=== PATIENT | female | born 1960 | race Two or more races ===

== ENCOUNTER 2025-02-05 05:46 | Inpatient (IN) | payer OTHER ==
[~2025-02-05] VITALS: Ht 172.7 cm; Wt 80.3 kg
--- NOTE | 2025-02-05 06:26 | ED.PDOC ---
History of Present Illness HPI Comments This is a 64-year-old female who comes in with chief complaint of status post injury to the left foot. The patient was states that at 1:00 a.m. in the morning she was walking and fell down and struck her left foot. The patient was taken to [facility]. It was noted at that time that she had an infection with possible fracture and laceration to the left foot 3rd digit. The patient required admission and so they started to contact different facilities and eventually the emergency department's physician at [facility] accepted the patient to be transferred to our facility. Upon arrival, the patient's foot is wrapped and swollen with redness around the area. She does state that she is having some pain rated as a 5/10. Over [place] it seems that she was given morphine for the pain as well as Zosyn for possible infection. The patient was no chest pain or shortness for breath. Chief Complaint: Lower Extremity Time Seen by MD: 06:08 Reviewed Notes: Nurses Notes, Bean Sorter Notes, Medications, Allergies (No allergies to medications) Allergies: Coded Allergies: Codeine (Verified Allergy, Unknown, 02/05/25) Hydroxyzine (Verified Allergy, Unknown, 02/05/25) Home Meds Reported Medications Duloxetine HCl (Duloxetine HCl) 30 Mg Cap, 1 CAP PO DAILY 02/05/25 Gabapentin (Gabapentin) 600 Mg Tab, TAB PO 02/05/25 Cetirizine HCl (Cetirizine Hydrochloride) 10 Mg Tab, 1 TAB PO DAILY 02/05/25 Baclofen (Baclofen) 20 Mg Tab, 1 TAB PO TID 02/05/25 Information Source: Patient, Emergency Med Personnel Mode of Arrival: EMS Severity: Moderate Timing: Hours Duration: Since onset Prehospital treatment: Rollout Manager, IVF, Other (Antibiotics given at [facility]. Pain medication also given at the hospital) Location: Left foot trauma Past Medical History PAST MEDICAL HISTORY: DM, [place] Past Medical History (Other): Chronic back pain Surgical History: Appendectomy, Hysterectomy, Tonsillectomy Surgical History (Other): Previous back surgery DIRECTOR OF MEDIA History: No Pertinent DIRECTOR OF MEDIA History Family History Family History: Family hx of DM, Family hx of heart kristina Social History Smoker: Cigarettes Alcohol: Denies ETOH Use Drugs: Denies Drug Use Lives In: Home Constitutional: denies: chills, diaphoresis, fatigue, fever, malaise, sweats, weakness, others EENTM: denies: blurred vision, double vision, ear bleeding, ear discharge, ear drainage, ear pain, ear ringing, eye pain, eye redness, hearing loss, mouth pain, mouth swelling, nasal discharge, nose bleeding, nose congestion, nose pain, photophobia, tearing, throat pain, throat swelling, voice changes, others Respiratory: denies: cough, hemoptysis, orthopnea, SOB at rest, shortness of breath, SOB with excertion, stridor, wheezing, others Cardiovascular: denies: chest pain, dizzy spells, diaphoresis, Dyspnea on exertion, edema, irregular heart beat, left arm pain, lightheadedness, palpitations, PND, syncope, others Gastrointestinal: denies: abdomen distended, abdominal pain, blood streaked bowels, constipated, diarrhea, dysphagia, difficulty swallowing, hematemesis, m joreg, nausea, poor appetite, poor fluid intake, rectal bleeding, rectal pain, vomiting, others Genitourinary: denies: abnormal vagina bleeding, burning, dyspareunia, dysuria, flank pain, frequency, hematuria, incontinence, pain, , vagina discharge, urgency, others Neurological: denies: dizziness, fainting, headache, left sided numbness, left sided weakness, numbness, paresthesia, pre-existing deficit, right sided numbness, right sided weakness, seizure, speech problems, tingling, tremors, weakness, others Musculoskeletal: reports: others (Left foot injury with possible infection); denies: back pain, gout, joint pain, joint swelling, muscle pain, muscle stiffness, neck pain Integumetry: denies: bruises, change in color, change in hair/nails, dryness, laceration, lesions, lumps, rash, wounds, others Allergic/Immunocompromised: denies: Difficulty Healing, Frequent Infections, Hives, Itching, others Hematologic/Lymphatic: denies: anemia, blood clots, easy bleeding, easy bruising, swollen glands, others Endocrine: denies: excessive hunger, excessive sweating, excessive thirst, excessive urination, flushing, intolerance to cold, intolerance to heat, unexplained weight gain, unexplained weight loss, others Psychiatric: denies: anxiety, bipolar disorder, depression, hopeless, panic disorder, schizophrenia, sleepless, suicidal, others Physical Exam General Appearance: Moderate Distress HEENT: Normal ENT Inspection, Pharynx Normal, TMs Normal Neck: Full Range of Motion, Non-Tender, Normal, Normal Inspection Respiratory: Chest Non-Tender, Lungs Clear, No Accessory Muscle Use, No Respiratory Distress, Normal Breath Sounds Cardiovascular: No Edema, No JVD, No Murmur, No Gallop, Normal Peripheral Pulses, Regular Rate/Rhythm Breast Exam: Deferred Gastrointestinal: No Organomegaly, Non Tender, No Pulsatile Mass, Normal Bowel Sounds, Soft Genitalia: Deferred Pelvic: Deferred Rectal: Deferred Extremities: No calf tenderness, Normal capillary refill, No pedal edema, Tender (Tenderness and deformity to the left foot with deformity to the 3rd digit) Musculoskeletal : Apperance: Normal Neurologic: Alert, phone representative II-XII nml as Tested, No Motor Deficits, Normal Affect, Normal Mood, No Sensory Deficits Cerebellar Function: Normal Reflexes: Normal Skin: Dry, Warm, Other (Left foot with dressing in place redness around the 3rd digit with swelling) Lymphatic: No Adenopathy Was a procedure done? Was a procedure done?: No Differential Dx Considerations may include: Cellulitis, abscess, fracture X-Ray, Labs, Meds, VS Vital Signs Date Time Temp Pulse Resp B/P (MAP) Pulse Ox O2 Delivery O2 Flow Rate FiO2 02/05/25 09:39 96 18 128/67 (87) 96 02/05/25 08:10 96 17 95 Room Air* 2 N/A Nasal Cannula* 02/05/25 07:45 98.2 96 17 115/76 (89) 94 98.2 02/05/25 07:42 78 14 121/46 02/05/25 07:11 85 18 143/67 02/05/25 06:27 14 98 Nasal Cannula* 4 36 02/05/25 06:21 99.3 80 14 130/68 (88) 94 99.3 02/05/25 05:50 98.5 82 18 132/74 (93) 96 98.5 Lab Test 02/05/25 06:33 Range/Units White Blood Count 13.0 H 4.4-10.8 10^3/uL Red Blood Count 5.43 H 4.0-5.20 10^6/uL Hemoglobin 16.1 12.2-16.2 g/dL Hematocrit 47.4 H 36.0-46.0 % Mean Corpuscular Volume 87.3 80.0-100.0 fL Mean Corpuscular Hemoglobin 29.7 28.0-32.0 pg Mean Corpuscular Hemoglobin Concent 34.0 32.0-36.0 g/dL Red Cell Distribution Width 15.4 H 11.8-14.3 % Platelet Count 307 140-450 10^3/uL Mean Platelet Volume 8.2 6.9-10.8 fL Neutrophils (%) (Auto) 66.9 37.0-80.0 % Lymphocytes (%) (Auto) 20.0 10.0-50.0 % Monocytes (%) (Auto) 9.5 0.0-12.0 % Eosinophils (%) (Auto) 2.7 0.0-7.0 % Basophils (%) (Auto) 0.9 0.0-2.0 % Neutrophils # (Auto) 8.7 H 1.6-8.6 10 ^3/uL Lymphocytes # (Auto) 2.6 0.4-5.4 10 ^3/uL Monocytes # (Auto) 1.2 0-1.3 10 ^3/uL Eosinophils # (Auto) 0.4 0-0.8 10 ^3/uL Basophils # (Auto) 0.1 0-0.2 10 ^3/uL Nucleated Red Blood Cells 0.0 % Prothrombin Time 10.7 9.3-11.8 sec Prothrombin Time INR 1.01 0.9-1.15 Activated Partial Thromboplast Time 23.2 L 24.5-34.5 SEC Sodium Level 140 136-145 mmol/L Potassium Level 4.5 3.5-5.1 mmol/L Chloride Level 111 H 98-107 mmol/L Carbon Dioxide Level 26 20-31 mmol/L Anion Gap 3 L 5-15 Blood Urea Nitrogen 10 9-23 mg/dL Creatinine 0.95 0.550-1.02 mg/dL Glomerular Filtration Rate Calc 67 >90 mL/min BUN/Creatinine Ratio 10.5 10.0-20.0 Serum Glucose 121 H 74-106 mg/dL Hemoglobin A1c 6.7 H <5.7 % A1C Calcium Level 9.9 8.7-10.4 mg/dL Current Medications Medications (Trade) Dose Ordered Sig/Luis Route Start Time Stop Time Status Last Admin Morphine Sulfate 4 mg ONCE ONCE IV 5/1/25 07:15 02/05/25 07:16 DC 02/05/25 07:11 Ondansetron HCl (Zofran) 4 mg ONCE ONCE IV 02/05/25 07:15 02/05/25 07:16 DC 02/05/25 07:12 IV Hep-Lock was established CAT scan of the left foot shows: IMPRESSION: 1. Dislocated 3rd PIP joint as described. Ultrasound of the left lower extremity shows no sign of any DVT The patient was having pain so was given morphine 4 mg IV push The patient was given Zofran 4 mg IV push for the nausea The patient's CBC shows an elevated white blood cell count of 13 The rest of the CBC is within normal limits The chemistry panel is within normal limits with a glucose of 121 The patient was being admitted The foot and ankle surgeon will be consulted Images Reviewed?: Images reviewed and evaluated by me Time of 1ST Reevaluation: 06:26 Reevaluation 1ST: Unchanged Patient Education/Counseling: Diagnosis, Treatment, Prognosis Family Education/Counseling: No Family Present Departure 1 Departure Time of Disposition: 11:42 Impression: Primary Impression: Dislocation of toe, left, closed Qualified Codes: S93.105A - Unspecified dislocation of left toe(s), initial encounter Disposition: ADMITTED INPATIENT Admit to: Med Surg Condition: Fair Critical Care Note Critical Care Time?: No Stability Stability form required: Yes Unstable for transfer: ED Physician Assesment (Clinical assesment) Heart Score Heart Score: Heart Score Response (Comments) Value History N/A 0 EKG N/A 0 Age N/A 0 Risk Factors N/A 0 Troponin N/A 0 Total 0 WILMA WARREN MD February 05, 2025 06:26
[2025-02-05 06:27] VITALS: RESP 14; O2SAT 98
[2025-02-05 07:08] LABS: Potassium 4.5 mmol/L (3.5-5.1); Sodium 140 mmol/L (136-145)
[2025-02-05 07:09] LABS: Anion Gap 3 (5-15); Calcium 9.9 mg/dL (8.7-10.4); Carbon Dioxide 26 mmol/L (20-31)
[2025-02-05 07:11] LABS: Chloride 111 mmol/L (98-107)
[2025-02-05] MEDS: MORPHINE SULFATE 4 MG/ML SYR/VIAL IV ONE (07:11)
[2025-02-05 07:12] LABS: Basophils # (auto) 0.1 10 ^3/uL (0-0.2); Basophils % (auto) 0.9 % (0.0-2.0); Eosinophils # (auto) 0.4 10 ^3/uL (0-0.8); Eosinophils % (auto) 2.7 % (0.0-7.0); Hematocrit 47.4 % (36.0-46.0); Hemoglobin 16.1 g/dL (12.2-16.2); Lymphocytes # (auto) 2.6 10 ^3/uL (0.4-5.4); Mean Corpuscular Hemoglobin 29.7 pg (28.0-32.0); Mean Corpuscular Volume 87.3 fL (80.0-100.0); Monocytes # (auto) 1.2 10 ^3/uL (0-1.3); Monocytes % (auto) 9.5 % (0.0-12.0); Neutrophils # (auto) 8.7 10 ^3/uL (1.6-8.6); Neutrophils % (auto) 66.9 % (37.0-80.0); Platelet Count (auto) 307 10^3/uL (140-450); Red Blood Cells 5.43 10^6/uL (4.0-5.20); Red Cell Distribution Width 15.4 % (11.8-14.3)
[2025-02-05] MEDS: ONDANSETRON HCL 4 MG/2 ML VIAL IV ONE (07:12)
[2025-02-05 07:14] LABS: BUN/Creatinine Ratio 10.5 (10.0-20.0); Blood Urea Nitrogen 10 mg/dL (9-23)
[2025-02-05 07:15] LABS: Glucose 121 mg/dL (74-106)
[2025-02-05 07:25] LABS: INR 1.01 (0.9-1.15); Partial Thromboplastin Time 23.2 SEC (24.5-34.5); Prothrombin Time 10.7 sec (9.3-11.8)
[2025-02-05 08:10] VITALS: PULSE 96; RESP 17; O2SAT 95
--- NOTE | 2025-02-05 08:30 | DVH ---
CLINICAL INDICATION: 64 years old, Female; trauma. TECHNIQUE: Noncontrast CT of the side Extremity was performed. Sagittal and coronal reformatted image s are provided. COMPARISON: None CT Dose: CTDI volume is 7.75 mGy. Dose-length product is 237.11 mGy*cm FINDINGS: No evidence of acute fracture. There is dorsal dislocation of the 3rd middle phalanx relati ve to the proximal phalanx. Amputation of the 2nd toe phalanges. IMPRESSION: 1. No acute fracture. Dorsal dislocation of the 3rd middle phalanx relative to the proximal phalanx. All CT scans at this medical facility are performed using dose modulation techniques as appropriate t o a performed exam including the following: Automated exposure control was utilized; adjustment of th e MA and/or KV according to patient size; and use of iterative reconstruction technique.
[2025-02-05] MEDS ORDERED: ACETAMINOPHEN 325 MG TAB PO PRN (10:00)
[2025-02-05] MEDS ORDERED: DULO1CAP5 PO (10:08)
[2025-02-05] MEDS ORDERED: BACL20TA PO (10:08)
[2025-02-05] MEDS ORDERED: GABA-339 PO (10:08)
[2025-02-05] MEDS ORDERED: CETI-120 PO (10:08)
[2025-02-05] MEDS ORDERED: DEXTROSE (50%) 50ML SYRG IV PRN (10:15)
[2025-02-05] MEDS: SODIUM CHLORIDE 0.9% 1,000 ML IV SCH (10:16)
[2025-02-05] MEDS: CLINDAMYCIN 600MG IV 50 ML IV SCH (10:16)
--- NOTE | 2025-02-05 10:33 | DVHHP2 ---
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 Patient reports that she was walking from the bathroom to her recliner without her front wheel walker when her legs gave out and she fell on her buttocks. Patient denies any head strike or loss of consciousness. Patient reports that she does use a front wheel walker. She also reports that she does not use home oxygen and upon examination patient is on 4 L nasal cannula. Patient also reports that she smokes 1 pack of cigarettes per day, does not drink, and does not use illicit drugs. Patient denies any chest pain, shortness of breath, fever, chills, lightheadedness, dizziness, recent sick contacts, recent travels, abdominal p ain, nausea, vomiting, or diarrhea. Cardiovascular: HTN, MA, hyperipidemia Psych: Depression Endocrine: Diabetes Past Medical History Chronic back pain Left DVT Past Surgical History: Appendectomy, CABG, Hysterectomy, Other (Amputation of left 2nd toe), Tonsillectomy Family History: DM, Other (Mom with diabetes and heart disease) Smoke: 1 pack per day ALCOHOL: none Drugs: None Lives: with Family Domestic Violence: Neg Review of Systems Musculoskeletal: foot pain Skin: Other (Erythema and open wound on left toes, right toes erythema) Allergies: Coded Allergies: Codeine (Verified Allergy, Unknown, 02/05/25) Hydroxyzine (Verified Allergy, Unknown, 02/05/25) Exam Vital Signs Vital Signs Date Time Temp Pulse Resp B/P (MAP) Pulse Ox O2 Delivery O2 Flow Rate FiO2 02/05/25 09:39 96 18 128/67 (87) 96 02/05/25 08:10 Room Air* 0 21 02/05/25 07:45 98.2 98.2 General Appearance: Alert, Oriented X3, Cooperative, No acute distress HEENT: Atraumatic, PERRLA, EOMI Respiratory: Clear to auscultation, Normal air movement Cardiovascular: Regular rate, Normal S1, Normal S2, No murmurs Abdominal: Normal bowel sounds, Soft, No tenderness Extremities: No cyanosis Neuro: Normal speech, Sensation intact Psych/Mental Status: Mental status NL, Mood NL Labs/Xrays Labs Test 02/05/25 06:33 Range/Units White Blood Count 13.0 H 4.4-10.8 10^3/uL Red Blood Count 5.43 H 4.0-5.20 10^6/uL Hemoglobin 16.1 12.2-16.2 g/dL Hematocrit 47.4 H 36.0-46.0 % Mean Corpuscular Volume 87.3 80.0-100.0 fL Mean Corpuscular Hemoglobin 29.7 28.0-32.0 pg Mean Corpuscular Hemoglobin Concent 34.0 32.0-36.0 g/dL Red Cell Distribution Width 15.4 H 11.8-14.3 % Platelet Count 307 140-450 10^3/uL Mean Platelet Volume 8.2 6.9-10.8 fL Neutrophils (%) (Auto) 66.9 37.0-80.0 % Lymphocytes (%) (Auto) 20.0 10.0-50.0 % Monocytes (%) (Auto) 9.5 0.0-12.0 % Eosinophils (%) (Auto) 2.7 0.0-7.0 % Basophils (%) (Auto) 0.9 0.0-2.0 % Neutrophils # (Auto) 8.7 H 1.6-8.6 10 ^3/uL Lymphocytes # (Auto) 2.6 0.4-5.4 10 ^3/uL Monocytes # (Auto) 1.2 0-1.3 10 ^3/uL Eosinophils # (Auto) 0.4 0-0.8 10 ^3/uL Basophils # (Auto) 0.1 0-0.2 10 ^3/uL Nucleated Red Blood Cells 0.0 % Prothrombin Time 10.7 9.3-11.8 sec Prothrombin Time INR 1.01 0.9-1.15 Activated Partial Thromboplast Time 23.2 L 24.5-34.5 SEC Sodium Level 140 136-145 mmol/L Potassium Level 4.5 3.5-5.1 mmol/L Chloride Level 111 H 98-107 mmol/L Carbon Dioxide Level 26 20-31 mmol/L Anion Gap 3 L 5-15 Blood Urea Nitrogen 10 9-23 mg/dL Creatinine 0.95 0.550-1.02 mg/dL Glomerular Filtration Rate Calc 67 >90 mL/min BUN/Creatinine Ratio 10.5 10.0-20.0 Serum Glucose 121 H 74-106 mg/dL Calcium Level 9.9 8.7-10.4 mg/dL XY L FOOT 2 VIEW XRAY, INDICATION: pain TECHNICAL DATA: Frontal, oblique and lateral views were obtained of the left foot. COMPARISON: Ct same day. FINDINGS: No evidence of acute fracture. There is dorsal dislocation of the 3rd middle phalanx relative to the proximal phalanx. Amputation of the 2nd digit phalanges. Heel spur. Achilles tendon enthesophyte. IMPRESSION: 1. Dislocated 3rd PIP joint as described. Bilateral lower extremity venous duplex Clinical History: Swelling r/o dvt Comparison: None Technique: Duplex Doppler evaluation of the deep venous systems of both lower extremities from the common femoral veins to the popliteal veins including color Doppler and spectral/pulsed waveform analysis was performed. Findings: RIGHT SIDE: The common femoral vein demonstrates appropriate compressibility and waveform variability. There is compressibility/patency of the great saphenous vein at the proximal thigh. The femoral vein demonstrates appropriate compressibility and waveform variability. The deep femoral vein demonstrates appropriate compressibility and waveform variability. The popliteal vein demonstrates appropriate compressibility and waveform variability. There is normal compressibility at the tibioperoneal trunk. LEFT SIDE: The common femoral vein demonstrates appropriate compressibility and waveform variability. There is compressibility/patency of the great saphenous vein at the proximal thigh. The femoral vein demonstrates appropriate compressibility and waveform variability. The deep femoral vein demonstrates appropriate compressibility and waveform variability. The popliteal vein demonstrates appropriate compressibility and waveform variability. There is normal compressibility at the tibioperoneal trunk. Impression: No right or left femoropopliteal venous thrombosis. CLINICAL INDICATION: 64 years old, Female; trauma. TECHNIQUE: Noncontrast CT of the side Extremity was performed. Sagittal and coronal reformatted images are provided. COMPARISON: None CT Dose: CTDI volume is 7.75 mGy. Dose-length product is 237.11 mGy*cm FINDINGS: No evidence of acute fracture. There is dorsal dislocation of the 3rd middle phalanx relative to the proximal phalanx. Amputation of the 2nd toe phalanges. IMPRESSION: 1. No acute fracture. Dorsal dislocation of the 3rd middle phalanx relative to the proximal phalanx. 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 History of hypertension History of hyperlipidemia History of diabetes type 2 History of depression History of MA status post CABG History of chronic back pain History of left leg DVT greater than 10 years ago not on anti coags History of appendectomy History of hysterectomy History of tonsillectomy Plan Admit to [facility] CT of left foot Antiemetics Pain management PT/PTT UA Wound culture Wound care Ultrasound bilateral lower extremities IV fluids Supportive oxygen IV antibiotics-clindamycin Hemoglobin A1c ISS and Accu-Cheks NPO Home medications reconciled DVT prophylaxis-SCDs PUD prophylaxis-PPIs Discussed plan of care with patient and nurse Counseled patient on cessation of tobacco use Ortho consult Plan discussed with: Patient My Orders Orders - BELEM ISRAEL Procedure Category Date Status Time Urinalysis LAB 02/05/25 Logged 09:06 Date of Service: February 05, 2025 Billing Provider: BELEM ISRAEL Common Visit Codes: [id number] INP/OBS CARE (HIGH) BELEM ISRAEL February 05, 2025 10:33
--- NOTE | 2025-02-05 11:08 | DVH ---
Bilateral lower extremity venous duplex Clinical History: Swelling r/o dvt Comparison: None Technique: Duplex Doppler evaluation of the deep venous systems of both lower extremities from the common femora l veins to the popliteal veins including color Doppler and spectral/pulsed waveform analysis was perf ormed. Findings: RIGHT SIDE: The common femoral vein demonstrates appropriate compressibility and waveform variability. There is compressibility/patency of the great saphenous vein at the proximal thigh. The femoral vein demonstrates appropriate compressibility and waveform variability. The deep femoral vein demonstrates appropriate compressibility and waveform variability. The popliteal vein demonstrates appropriate compressibility and waveform variability. There is normal compressibility at the tibioperoneal trunk. LEFT SIDE: The common femoral vein demonstrates appropriate compressibility and waveform variability. There is compressibility/patency of the great saphenous vein at the proximal thigh. The femoral vein demonstrates appropriate compressibility and waveform variability. The deep femoral vein demonstrates appropriate compressibility and waveform variability. The popliteal vein demonstrates appropriate compressibility and waveform variability. There is normal compressibility at the tibioperoneal trunk. Impression: No right or left femoropopliteal venous thrombosis.
[2025-02-05] MEDS: InsuLIN REG 1unit/0.01ml Soln (100units/ml) SC SCH (12:15)
[2025-02-05] MEDS: ACCU-CHEK COMFORT CURVE STRIP VI SCH (12:15)
[2025-02-05] MEDS: MORPHINE SULFATE INJ 2 MG/ml SYRG IV PRN (13:20)
[2025-02-05] MEDS: HYDROcodone-ACET 5/325MG TAB PO PRN (15:50)
--- NOTE | 2025-02-05 16:23 | DVHINCON2 ---
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 Patient reports that she was walking from the bathroom to her recliner without her front wheel walker when her legs gave out and she fell on her buttocks. Patient denies any head strike or loss of consciousness. Patient reports that she does use a front wheel walker. She also reports that she does not use home oxygen and upon examination patient is on 4 L nasal cannula. Patient also reports that she smokes 1 pack of cigarettes per day, does not drink, and does not use illicit drugs. Patient denies any chest pain, shortness of breath, fever, chills, lightheadedness, dizziness, recent sick contacts, recent travels, abdominal pain, nausea, vomiting, or diarrhea. Past Medical History see h&p Past Surgical History see H&P Allergies: Coded Allergies: Codeine (Verified Allergy, Unknown, 02/05/25) Hydroxyzine (Verified Allergy, Unknown, 02/05/25) Home Meds Reported Medications Duloxetine HCl (Duloxetine HCl) 30 Mg Cap, 1 CAP PO DAILY 02/05/25 Gabapentin (Gabapentin) 600 Mg Tab, TAB PO 02/05/25 Cetirizine HCl (Cetirizine Hydrochloride) 10 Mg Tab, 1 TAB PO DAILY 02/05/25 Baclofen (Baclofen) 20 Mg Tab, 1 TAB PO TID 02/05/25 Current Medications Current Medications Medications (Trade) Dose Ordered Sig/Luis Route PRN Reason Start Time Stop Time Status Last Admin Clindamycin Phosphate 50 ml @ 50 mls/hr Q8HR IV 02/05/25 10:00 02/05/25 14:04 Sodium Chloride 1,000 ml @ 100 mls/hr Q10H IV 02/05/25 10:00 02/05/25 10:16 Acetaminophen (Tylenol Tablet) 650 mg Q6HP PRN PO PAIN SCALE 1-3 OR TEMP>100.4 02/05/25 10:00 Diagnostic Test (Pha) (Accu-Chek Comfort Curve T) 1 strip Q6HR 02/05/25 12:00 02/05/25 12:15 Insulin Human Regular (InsuLIN R) Q6HR SC 02/05/25 12:00 Dextrose 50 ml UD PRN IV Blood Sugar LESS THAN 60 02/05/25 10:15 Acetaminophen/ Hydrocodone Bitart ([place] 5/325MG Tab) 1 tab Q4HPRN PRN PO MODERATE PAIN (4-6 PAIN SCALE) 02/05/25 13:15 02/05/25 15:50 Morphine Sulfate 1 mg Q6HP PRN IV SEVERE PAIN (7-10 PAIN SCALE) 02/05/25 13:15 02/05/25 13:20 Vital Signs Vital Signs Date Time Temp Pulse Resp B/P (MAP) Pulse Ox O2 Delivery O2 Flow Rate FiO2 02/05/25 14:00 84 16 143/70 02/05/25 13:45 98.4 96 98.4 02/05/25 08:10 Room Air* 2 N/A Nasal Cannula* Physical Exam Dermatological: No obvious derformity, swelling, bruising or skin changes Open wounds sub 3rd digit Vascular: Dorsalis pedis and posterior tibial pulses are 2+ bilaterally Capillary refill is <2 seconds Skin temperature is warm bilaterally Neurologic: Protective sensation intact to 10g monofilament Vibration sensation normal Musculoskeletal: Tenderness to palpation over 3rd digit with dislocation No warmth, fluctuance, or crepitus noted Range of motion at the ankle and MTP joints is within normal limits. Strength is 5/5 in all tested muscle groups. Antalgic gait abnormality Labs/Diagnostic Data Labs Test 02/05/25 12:08 02/05/25 06:33 Range/Units POC Glucose 126 H 70-106 mg/dl White Blood Count 13.0 H 4.4-10.8 10^3/uL Red Blood Count 5.43 H 4.0-5.20 10^6/uL Hemoglobin 16.1 12.2-16.2 g/dL Hematocrit 47.4 H 36.0-46.0 % Mean Corpuscular Volume 87.3 80.0-100.0 fL Mean Corpuscular Hemoglobin 29.7 28.0-32.0 pg Mean Corpuscular Hemoglobin Concent 34.0 32.0-36.0 g/dL Red Cell Distribution Width 15.4 H 11.8-14.3 % Platelet Count 307 140-450 10^3/uL Mean Platelet Volume 8.2 6.9-10.8 fL Neutrophils (%) (Auto) 66.9 37.0-80.0 % Lymphocytes (%) (Auto) 20.0 10.0-50.0 % Monocytes (%) (Auto) 9.5 0.0-12.0 % Eosinophils (%) (Auto) 2.7 0.0-7.0 % Basophils (%) (Auto) 0.9 0.0-2.0 % Neutrophils # (Auto) 8.7 H 1.6-8.6 10 ^3/uL Lymphocytes # (Auto) 2.6 0.4-5.4 10 ^3/uL Monocytes # (Auto) 1.2 0-1.3 10 ^3/uL Eosinophils # (Auto) 0.4 0-0.8 10 ^3/uL Basophils # (Auto) 0.1 0-0.2 10 ^3/uL Nucleated Red Blood Cells 0.0 % Prothrombin Time 10.7 9.3-11.8 sec Prothrombin Time INR 1.01 0.9-1.15 Activated Partial Thromboplast Time 23.2 L 24.5-34.5 SEC Sodium Level 140 136-145 mmol/L Potassium Level 4.5 3.5-5.1 mmol/L Chloride Level 111 H 98-107 mmol/L Carbon Dioxide Level 26 20-31 mmol/L Anion Gap 3 L 5-15 Blood Urea Nitrogen 10 9-23 mg/dL Creatinine 0.95 0.550-1.02 mg/dL Glomerular Filtration Rate Calc 67 >90 mL/min BUN/Creatinine Ratio 10.5 10.0-20.0 Serum Glucose 121 H 74-106 mg/dL Hemoglobin A1c 6.7 H <5.7 % A1C Calcium Level 9.9 8.7-10.4 mg/dL Problems(with codes): (1) Dislocation of toe, left, closed Plan/Recommendation ASSESSMENT: Patient is a 64 year old who was seen in the ER for left 3rd toe dislocation PLAN: X-ray of the foot and ankle obtained to confirm fracture and assessed displacement Reviewed imaging which showed recommend that we go and pin the toe with a being open and dislocated patient has been NPO for more than 24 hours patient can weightbear as tolerated in a postoperative shoe patient should be sent home on 2 weeks of p.o. antibiotics patient will follow up with me in 1 week after discharge All questions were answered, and concerns addressed to the patient�s satisfaction. Patient is to contact the clinic should any concerns or questions arise. Patient understands that if any questions or concerns arise prior to the next appointment, I should be contacted immediately. FOLLOW-UP: 1 week after discharge Plan discussed with: Patient Date of Service: February 05, 2025 Billing Provider: MARZENA HARTMAN DPM Common Visit Codes: CONSULT ONLY Consultation Codes: [id number] CONSULT <80MIN MARZENA HARTMAN DPM February 05, 2025 16:23
[2025-02-05] MEDS ORDERED: fentaNYL CITRATE 100 MCG/2 ML VL ONE (16:39)
[2025-02-05] MEDS ORDERED: PROPOFOL 10 MG/ML 20 ML IV ONE (16:40)
--- NOTE | 2025-02-05 16:45 | DVH ---
CHEST RADIOGRAPH Indication: PRE PROCEDURE Technique: Single frontal view of the chest was obtained COMPARISON: None FINDINGS: Lines and Tubes: Sternotomy. Stimulator devices overlie bilateral chest. Lungs: Suggestion Pleura: No effusion. No pneumothorax. Cardiomediastinal contours: Unremarkable Bones: Thoracolumbar spinal fixation hardware, partially imaged. IMPRESSION: Mild congestion
[2025-02-05] MEDS ORDERED: ePHEDrine SULFATE 50 MG/ML AMP ONE (17:26)
[2025-02-05] MEDS: BUPIVACAINE 0.5% P/F INJ 10 ML VIAL ONE (17:30)
[2025-02-05] MEDS ORDERED: ONDANSETRON HCL 4 MG/2 ML VIAL ONE (17:31)
[2025-02-05 17:45] VITALS: PULSE 78; RESP 14; O2SAT 93
--- NOTE | 2025-02-05 17:45 | DVHOP2 ---
Operative Report - 2 Report Details Date: 02/05/25 Preop Diagnosis: 1. Left foot 3rd toe open fracture 2. Left foot toe cellulitis 3. Left foot diabetic ulcer Postop Diagnosis: Same as preop Surgeon: Marzena Hartman MD Anesthesiologist: See anesthesia Anesthesia: General Implant: 0.045 K-wire Consent: The patient was informed of the risks and benefits of the procedure. These include but are not limited to complications of anesthesia, postoperative infection, incomplete relief of symptoms, recurrence of symptoms, damage to blood vessels, nerves and tendons, deep venous thrombosis, pulmonary embolism and possible need for repeat surgery in the future. Complications: None Estimated Blood Loss: Minimal Fluids: See anesthesia Findings: Consistent with the diagnosis Indications for Surgery: Open fracture with exposed bone Name of Procedure Performed 1. Left foot I&D to bone (94419) 2. Left foot bone biopsy () 3. Left foot third toe ORIF (51679) Procedure Details Procedure Details: PRE-PROCEDURE INFORMATION: In the pre-op holding area, the extremity to be operated on was clearly marked and the patient verified correct laterality of t he marking. The patient was transferred to the OR table and placed in a supine position. A timeout was performed in which identification of the correct patient, procedure, location, and materials was done. The left foot and leg were prepped and draped in normal sterile fashion. The foot and leg were exsanguinated and the _ tourniquet was inflated to 250 mmHg. DESCRIPTION OF PROCEDURE: Attention was directed to the left foot where open fracture was located. An incision was made over this area and was deepened through blunt dissection. The incision was deepened to the level of abscess and bone. Care was taken to the dissection to avoid any neurovascular and tendinous structures. The incision was deepened to the bone. The cortices of the bone was then removed with rongeur an all necrotic tissue. The area was irrigated with 3 L normal saline using cysto tubing. The area was then inspected and any areas of tracking, especially along the tendons were also drained. A bone biopsy was then taken of the left 3rd toe which was deepened to the muscle belly and tendons. The bone was then sent to pathology to determine the extent of osteomyelitis. The fracture was identified and found to be significantly displaced. The fracture was then reduced anatomically under direct visualization. The fracture was able to be reduced after removal of the bone biopsy. A 0.045 K-wire was introduced percutaneously and advanced retrograde across the fracture site to maintain alignment. Positioning was verified with intraoperative fluoroscopy confirming appropriate alignment and fixation. All surgical wounds were irrigated copiously with saline and closed in layers with the aforementioned suture material. A dry sterile dressing was placed on the surgical extremity. The patient was placed in a postop shoe POSTOPERATIVE INFORMATION: The patient tolerated the above noted procedure and anesthesia well and was transferred to the PACU with vital signs stable, and vascular status intact with capillary refill intact to all digits. Patient will return to the floor and continue antibiotics. Patient can weightbear as tolerated with a postoperative shoe. Patient can be discharged home on p.o. antibiotics. Patient will follow up with me in approximately 1-2 weeks in clinic. Specimen: Left 3rd toe proximal phalanx Condition Good Disposition Still a Patient MARZENA HARTMAN DPM February 05, 2025 17:45
[2025-02-05 19:00] VITALS: RESP 18
[2025-02-05 20:00] VITALS: PULSE 72; RESP 19; O2SAT 96
[2025-02-05 21:00] VITALS: BP 123/56; PULSE 72; RESP 19; TEMP 98.2; O2SAT 96
[2025-02-06] VITALS (8 sets, daily range): BP systolic 116–142; BP diastolic 60–82; PULSE 64–89; RESP 15–20; TEMP 97.5–99.7; O2SAT 95–99
[2025-02-06 10:04] LABS: Basophils # (auto) 0.1 10 ^3/uL (0-0.2); Basophils % (auto) 0.5 % (0.0-2.0); Eosinophils # (auto) 0.2 10 ^3/uL (0-0.8); Eosinophils % (auto) 1.8 % (0.0-7.0); Hematocrit 45.4 % (36.0-46.0); Lymphocytes # (auto) 1.7 10 ^3/uL (0.4-5.4); Lymphocytes % (auto) 12.8 % (10.0-50.0); Mean Corpuscular Hemoglobin 29.2 pg (28.0-32.0); Mean Corpuscular Volume 88.5 fL (80.0-100.0); Monocytes # (auto) 1.2 10 ^3/uL (0-1.3); Monocytes % (auto) 8.9 % (0.0-12.0); Neutrophils # (auto) 10.2 10 ^3/uL (1.6-8.6); Nucleated Red Blood Cells % 0.1 %; Platelet Count (auto) 293 10^3/uL (140-450); Red Blood Cells 5.13 10^6/uL (4.0-5.20); Red Cell Distribution Width 15.2 % (11.8-14.3); White Blood Cell 13.4 10^3/uL (4.4-10.8)
--- NOTE | 2025-02-06 10:07 | ECG ---
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
[2025-02-06 10:28] LABS: Albumin 3.7 g/dL (3.2-4.8); Alkaline Phosphatase 78 U/L (46-116); Anion Gap 6 (5-15); BUN/Creatinine Ratio 13.2 (10.0-20.0); Bilirubin, Total 0.6 mg/dL (0.2-1.0); Blood Urea Nitrogen 10 mg/dL (9-23); Calcium 9.3 mg/dL (8.7-10.4); Carbon Dioxide 25 mmol/L (20-31); Potassium 4.1 mmol/L (3.5-5.1); Sodium 140 mmol/L (136-145); Total Protein 6.3 g/dL (5.7-8.2)
[2025-02-06 10:31] LABS: Alanine Aminotransferase < 9 U/L (7-40); Aspartate Aminotransferase 10 U/L (13-40); Chloride 109 mmol/L (98-107); Glucose 126 mg/dL (74-106)
--- NOTE | 2025-02-06 16:54 | DVHPN2 ---
Subjective in bed resting, had surgery Changes from previous H/P or p: No Changes Musculoskeletal: foot pain Skin: Other (Erythema and open wound on left toes, right toes erythema) Objective Vitals Vital Signs Date Time Temp Pulse Resp B/P (MAP) Pulse Ox O2 Delivery O2 Flow Rate FiO2 02/06/25 12:55 98.1 65 18 132/82 (99) 99 98.1 02/06/25 08:00 Nasal Cannula* 2 28 Intake/Output Intake and Output 02/06/25 07:00 Intake Total 600 ml Balance 600 ml Intake Oral 0 ml IV Total 600 ml General Appearance: Alert, Oriented X3 Lungs: Clear to auscultation Cardiovascular: Regular rate, Normal S1 Abdomen: Normal bowel sounds Medications Current Medications Medications Dose Ordered Sig/Luis Route Start Time Stop Time Status Last Admin Dose Admin Clindamycin Phosphate 50 ml @ 50 mls/hr Q8HR IV 02/05/25 10:00 02/06/25 06:08 50 MLS/HR Sodium Chloride 1,000 ml @ 100 mls/hr Q10H IV 02/05/25 10:00 02/05/25 10:16 100 MLS/HR Acetaminophen 650 mg Q6HP PRN PO 02/05/25 10:00 Diagnostic Test (Pha) 1 strip Q6HR 02/05/25 12:00 02/06/25 12:00 1 STRIP Insulin Human Regular Q6HR SC 02/05/25 12:00 02/06/25 01:10 2 UNITS Dextrose 50 ml UD PRN IV 02/05/25 10:15 Acetaminophen/ Hydrocodone Bitart 1 tab Q4HPRN PRN PO 02/05/25 13:15 02/05/25 15:50 1 TAB Morphine Sulfate 1 mg Q6HP PRN IV 02/05/25 13:15 02/06/25 03:07 1 MG Laboratory Results Laboratory Tests 02/06/25 09:50 Chemistry Test 02/06/25 09:50 Albumin 3.7 g/dL (3.2-4.8) Calcium Level 9.3 mg/dL (8.7-10.4) Total Protein 6.3 g/dL (5.7-8.2) LFT Test 02/06/25 09:50 Alanine Aminotransferase (ALT) < 9 U/L (7-40) Alkaline Phosphatase 78 U/L (46-116) Aspartate Amino Transferase (AST) 10 U/L (13-40) L Total Bilirubin 0.6 mg/dL (0.2-1.0) Assessment/Plan Assessment/Plan Left lower extremity pain status post fall likely from left dorsal dislocation 3rd middle phalanx Acute hypoxic respiratory failure Leukocytosis probable cellulitis Tobacco use History of amputation of left 2nd toe History of hypertension History of hyperlipidemia History of diabetes type 2 History of depression History of [place] status post CABG History of chronic back pain History of left leg DVT greater than 10 years ago not on anti coags History of appendectomy History of hysterectomy History of tonsillectomy s/p surgery today Post op pain control Plan discussed with: Patient Date of Service: February 06, 2025 Billing Provider: VIVIANE ZAMBRANO MD Common Visit Codes: [id number] INP/OBS CARE(HIGH) VIVIANE ZAMBRANO MD February 06, 2025 16:54
[2025-02-06 20:51] LABS: Urine Bacteria None Seen /hpf (None Seen)
[2025-02-06 20:55] LABS: Urine Blood Negative /uL (Negative); Urine Clarity Clear (Clear); Urine Color Yellow (Yellow); Urine Mucus FEW (None Seen); Urine Protein, UAD Negative (Negative); Urine Specific Gravity 1.019 (1.001-1.035); Urine Squamous Epithelial Cell FEW /hpf (<5); Urine Urobilinogen Normal (Negative); Urine WBC 2 /HPF (0-5)
[2025-02-07] VITALS (7 sets, daily range): BP systolic 135–157; BP diastolic 59–88; PULSE 65–93; RESP 16–20; TEMP 97.6–98.3; O2SAT 96–98
--- NOTE | 2025-02-07 15:47 | DVHPN2 ---
Subjective The patient is seen and examined at bedside. Complain of pain. Reviewed: Care Plan, H&P, Labs, Medications, Previous Orders, Radiology Changes from previous H/P or p: No Changes Musculoskeletal: foot pain Skin: Other (Erythema and open wound on left toes, right toes erythema) Objective Vitals Vital Signs Date Time Temp Pulse Resp B/P (MAP) Pulse Ox O2 Delivery O2 Flow Rate FiO2 02/07/25 13:37 83 18 144/59 02/07/25 12:00 98.0 97 98.0 02/07/25 08:00 Room Air* 0 21 Intake/Output Intake and Output 02/07/25 07:00 Intake Total 350 ml Balance 350 ml Intake Oral 350 ml # Voids 4 General Appearance: Alert, Oriented X3 Lungs: Clear to auscultation Cardiovascular: Regular rate, Normal S1 Abdomen: Normal bowel sounds Medications Current Medications Medications Dose Ordered Sig/Luis Route Start Time Stop Time Status Last Admin Dose Admin Clindamycin Phosphate 50 ml @ 50 mls/hr Q8HR IV 02/05/25 10:00 02/07/25 13:35 50 MLS/HR Acetaminophen 650 mg Q6HP PRN PO 02/05/25 10:00 Diagnostic Test (Pha) 1 strip Q6HR 02/05/25 12:00 02/07/25 11:27 1 STRIP Insulin Human Regular Q6HR SC 02/05/25 12:00 02/07/25 11:27 2 UNITS Dextrose 50 ml UD PRN IV 02/05/25 10:15 Acetaminophen/ Hydrocodone Bitart 1 tab Q4HPRN PRN PO 02/05/25 13:15 02/07/25 13:37 1 TAB Morphine Sulfate 1 mg Q6HP PRN IV 02/05/25 13:15 02/07/25 11:27 1 MG Laboratory Results Laboratory Tests 02/06/25 09:50 Urinalysis Test 02/06/25 13:00 Urine Color Yellow (Yellow) Urine Clarity Clear (Clear) Urine pH 6.0 (5.0-9.0) Urine Specific [place] 1.019 (1.001-1.035) Urine Protein Negative (Negative) Urine Ketones 2+ (Negative) H Urine Blood Negative /uL (Negative) Urine Nitrite Negative (Negative) Urine Bilirubin Negative (Negative) Urine Urobilinogen Normal mg/dL (Negative) Urine Leukocyte Esterase Negative /uL (Negative) Urine RBC <1 /hpf (0 - 4) Urine Microscopic WBC 2 /HPF (0-5) Urine Squamous Epithelial Cells Few /hpf (<5) Urine Bacteria None seen /hpf (None Seen) Urine Mucus Few (None Seen) Urine Glucose Normal mg/dL (Normal) Labs and/or images reviewed: Labs reviewed by me Assessment/Plan Assessment/Plan Left lower extremity pain status post fall likely from left dorsal dislocation 3rd middle phalanx Acute hypoxic respiratory failure Leukocytosis probable cellulitis Tobacco use History of amputation of left 2nd toe History of hypertension History of hyperlipidemia History of diabetes type 2 History of depression History of [place] status post CABG History of chronic back pain History of left leg DVT greater than 10 years ago not on anti coags History of appendectomy History of hysterectomy History of tonsillectomy Continuing current management. Continuing with sliding scale insulin. Continuing with pain medication. Advised to stop smoking more than 15 minutes Discharge planning when cleared by orthopedic surgeon PT eval and treat This medical document was created using an electronic medical record system with [employer] direct computerized dictation system. Although this document has been carefully reviewed, there may still be some phonetic and typographical errors. These areas are purely typographical due to imperfections of the software programs, and do not reflect any compromise in the patient's medical care. Plan discussed with: Patient Date of Service: February 07, 2025 Billing Provider: YUNG MARSHALL MD Common Visit Codes: [id number] INP/OBS CARE(HIGH) YUNG MARSHALL MD February 07, 2025 15:47
[2025-02-08 01:00] VITALS: BP 128/74; PULSE 82; RESP 18; TEMP 98.2; O2SAT 97
[2025-02-08] MEDS: MORPHINE SULFATE INJ 2 MG/ml SYRG IV ONE (01:08)
[2025-02-08 05:00] VITALS: BP 116/65; PULSE 69; RESP 20; TEMP 98.1; O2SAT 97
[2025-02-08 08:00] VITALS: PULSE 80; RESP 19; O2SAT 99
[2025-02-08 09:16] VITALS: BP 148/83; PULSE 80; RESP 19; TEMP 98.1; O2SAT 99
[2025-02-08 13:36] VITALS: BP 141/69; PULSE 86; RESP 17; TEMP 97.9; O2SAT 98
[2025-02-08] MEDS ORDERED: HYDR-4902 PO (13:42)
--- NOTE | 2025-02-08 13:46 | DVHDS2 ---
Discharge Summary Date of Admission February 05, 2025 at 09:56 Date of Discharge: February 08, 2025 Admitting Diagnosis Left lower extremity pain status post fall likely from left dorsal dislocation 3rd middle phalanx Acute hypoxic respiratory failure Leukocytosis probable cellulitis Tobacco use History of amputation of left 2nd toe History of hypertension History of hyperlipidemia History of diabetes type 2 History of depression History of [place] status post CABG History of chronic back pain History of left leg DVT greater than 10 years ago not on anti coags History of appendectomy History of hysterectomy History of tonsillectomy Labs/Diagnostic Data: Laboratory Results Test 02/08/25 12:14 02/06/25 13:00 02/06/25 09:50 02/05/25 06:33 POC Glucose 150 mg/dl (70-106) Urine Color Yellow (Yellow) Urine Clarity Clear (Clear) Urine pH 6.0 (5.0-9.0) Urine Specific [place] 1.019 (1.001-1.035) Urine Protein Negative (Negative) Urine Ketones 2+ (Negative) Urine Blood Negative /uL (Negative) Urine Nitrite Negative (Negative) Urine Bilirubin Negative (Negative) Urine Urobilinogen Normal mg/dL (Negative) Urine Leukocyte Esterase Negative /uL (Negative) Urine RBC <1 /hpf (0 - 4) Urine Microscopic WBC 2 /HPF (0-5) Urine Squamous Epithelial Cells Few /hpf (<5) Urine Bacteria None seen /hpf (None Seen) Urine Mucus Few (None Seen) Urine Glucose Normal mg/dL (Normal) White Blood Count 13.4 10^3/uL (4.4-10.8) Red Blood Count 5.13 10^6/uL (4.0-5.20) Hemoglobin 15.0 g/dL (12.2-16.2) Hematocrit 45.4 % (36.0-46.0) Mean Corpuscular Volume 88.5 fL (80.0-100.0) Mean Corpuscular Hemoglobin 29.2 pg (28.0-32.0) Mean Corpuscular Hemoglobin Concent 33.0 g/dL (32.0-36.0) Red Cell Distribution Width 15.2 % (11.8-14.3) Platelet Count 293 10^3/uL (140-450) Mean Platelet Volume 8.4 fL (6.9-10.8) Neutrophils (%) (Auto) 76.0 % (37.0-80.0) Lymphocytes (%) (Auto) 12.8 % (10.0-50.0) Monocytes (%) (Auto) 8.9 % (0.0-12.0) Eosinophils (%) (Auto) 1.8 % (0.0-7.0) Basophils (%) (Auto) 0.5 % (0.0-2.0) Neutrophils # (Auto) 10.2 10 ^3/uL (1.6-8.6) Lymphocytes # (Auto) 1.7 10 ^3/uL (0.4-5.4) Monocytes # (Auto) 1.2 10 ^3/uL (0-1.3) Eosinophils # (Auto) 0.2 10 ^3/uL (0-0.8) Basophils # (Auto) 0.1 10 ^3/uL (0-0.2) Nucleated Red Blood Cells 0.1 % Sodium Level 140 mmol/L (136-145) Potassium Level 4.1 mmol/L (3.5-5.1) Chloride Level 109 mmol/L (98-107) Carbon Dioxide Level 25 mmol/L (20-31) Anion Gap 6 (5-15) Blood Urea Nitrogen 10 mg/dL (9-23) Creatinine 0.76 mg/dL (0.550-1.02) Glomerular Filtration Rate Calc 87 mL/min (>90) BUN/Creatinine Ratio 13.2 (10.0-20.0) Serum Glucose 126 mg/dL (74-106) Calcium Level 9.3 mg/dL (8.7-10.4) Total Bilirubin 0.6 mg/dL (0.2-1.0) Aspartate Amino Transferase (AST) 10 U/L (13-40) Alanine Aminotransferase (ALT) < 9 U/L (7-40) Alkaline Phosphatase 78 U/L (46-116) Total Protein 6.3 g/dL (5.7-8.2) Albumin 3.7 g/dL (3.2-4.8) Prothrombin Time 10.7 sec (9.3-11.8) Prothrombin Time INR 1.01 (0.9-1.15) Activated Partial Thromboplast Time 23.2 SEC (24.5-34.5) Hemoglobin A1c 6.7 % A1C (<5.7) Other Laboratory Tests 02/06/25 09:50 Brief Hx & Hospital Course: This is a 64 years old female with past medical history of amputation of left 2nd toe, hypertension, hyperlipidemia, diabetes, DVT of the left leg, depression, chronic back pain, [place], CABG, appendectomy, hysterectomy, and tonsillectomy came to emergency department because of left lower extremity pain status post fall. The patient reports that she was walking on the bathroom to her recliner without her front wheel walker when her leg gave out and she fell on her buttock. Patient did not hit her head or lost consciousness. The patient has used front wheel walker to walk around the house. She also did not use home oxygen but upon arrival she required 4 L of nasal cannula. The patient has smoked a pack of cigarettes per day. The patient was admitted. X-ray was done showed: No evidence of acute fracture. There is dorsal dislocation of the 3rd middle phalanx relative to the proximal phalanx. Amputation of the 2nd digit phalanges. Heel spur. Achilles tendon enthesophyte. CT left foot showed: No acute fracture. Dorsal dislocation of the 3rd middle phalanx relative to the proximal phalanx. The patient subsequently had surgery done by data warehouse manager, Dr. Bar. He did a Left foot I&D to bone, Left foot bone biopsy, Left foot third toe ORIF. Recommend the patient can walk with weightbear as tolerated with a postoperative shoe. Antibiotic was started in the hospital and the patient will be continuing with oral antibiotic at home. Follow up with data warehouse manager in 2-3 weeks. Follow up with her primary care physician 1-2 weeks. Activity as tolerated. Diet low-salt low-cholesterol 2000 ADA calorie diet. Physical exam: HEENT: Normocephalic atraumatic pupils equal react to light and accommodation. Extraocular muscles intact, conjunctiva pink, oropharynx moist, no thrush, no exudate. Lymphatic: No lymphadenopathy Cardiovascular exam: S1, S2 was heard. No murmurs, rubs, gallops Lung: Clear on auscultation bilaterally, no wheeze, rale, rhonchi. GI: Abdominal soft, nondistended, nontenderness, positive bowel sounds. Extremity: No crepitus, cyanosis, edema. Pedal pulses present bilateral. Full range of motion. Skin: Normal turgor, no rash. Psych: Alert, oriented x3. Neurology: No focal deficits, cranial nerve II to XII grossly intact. This medical document was created using an electronic medical record system with [email or web address] direct computerized dictation system. Although this document has been carefully reviewed, there may still be some phonetic and typographical errors. These areas are purely typographical due to imperfections of the software programs, and do not reflect any compromise in the patient's medical care. Condition at Discharge: Stable Final Diagnosis/Problems List Left lower extremity pain status post fall likely from left dorsal dislocation 3rd middle phalanx Acute hypoxic respiratory failure Leukocytosis probable cellulitis Tobacco use History of amputation of left 2nd toe History of hypertension History of hyperlipidemia History of diabetes type 2 History of depression History of [place] status post CABG History of chronic back pain History of left leg DVT greater than 10 years ago not on anti coags History of appendectomy History of hysterectomy History of tonsillectomy Discharge Disposition: Home Discharge Instruct/Medications Diet: Cardiac 2g Na,low cholest Activity: No Restrictions, As Tolerated Follow Up/Referral: pcp 1-2 weeks data warehouse manager per schedule Medications: [place] 5/325 one tab PO q6hPRN Discharge Statement: "Patient was advised to return to the ER or call 911 if any headaches, dizziness, shortness of breath, chest pain, abdominal pain, bleeding, fevers, or worsening of medical condition. Patient was counseled about treatment plan, medications, possible side effects, patient�verbalized understanding. All questions were answered to the best of my ability. This discharge took greater then 30 minutes in planning, reviewing documentation, counseling the patient, and discussing with other team members." ASSESSMENT ASSESSMENT Assessment left ankle dislocation Date of Service: February 08, 2025 Billing Provider: YUNG MARSHALL MD Common Visit Codes: [id number] DISCH DAY >30min YUNG MARSHALL MD February 08, 2025 13:45
[2025-02-12] MEDS ORDERED: CLIN150C PO (07:03)
== END 2025-02-08 16:20 | disposition home or self-care (01) | DRG 628 ==
LOC: ER 05:46 → EDBD 05:46 → OVERFLOW 09:56 → WEST WING 19:00
PROC: 0QSR04Z Reposition Left Toe Phalanx with Internal Fixation Device, Open Approach (ICD-10-PCS; 2025-02-05)
PROC: 0Y9N0ZZ Drainage of Left Foot, Open Approach (ICD-10-PCS; 2025-02-05)
PROC: 0QBP0ZX Excision of Left Metatarsal, Open Approach, Diagnostic (ICD-10-PCS; principal; 2025-02-05 17:09)
DX: E11.621 Type 2 diabetes mellitus with foot ulcer (principal); J96.01 Acute respiratory failure with hypoxia; D72.829 Elevated white blood cell count, unspecified; S93.105A Unspecified dislocation of left toe(s), initial encounter; L03.032 Cellulitis of left toe; G89.29 Other chronic pain; M54.9 Dorsalgia, unspecified; F32.A Depression, unspecified; I10 Essential (primary) hypertension; E78.5 Hyperlipidemia, unspecified; F17.210 Nicotine dependence, cigarettes, uncomplicated; S93.05XA Dislocation of left ankle joint, initial encounter; M77.32 Calcaneal spur, left foot; W18.39XA Other fall on same level, initial encounter; Y93.01 Activity, walking, marching and hiking; Z88.5 Allergy status to narcotic agent; Z88.8 Allergy status to other drugs, medicaments and biological substances; Z79.899 Other long term (current) drug therapy; Z90.710 Acquired absence of both cervix and uterus; Z83.3 Family history of diabetes mellitus; Y92.89 Other specified places as the place of occurrence of the external cause; Y99.8 Other external cause status; Z95.1 Presence of aortocoronary bypass graft; Z89.422 Acquired absence of other left toe(s); Z82.49 Family history of ischemic heart disease and other diseases of the circulatory system; Z86.718 Personal history of other venous thrombosis and embolism; Z90.49 Acquired absence of other specified parts of digestive tract; I25.2 Old myocardial infarction; Z71.6 Tobacco abuse counseling
CPT/HCPCS: 36415; 71045; 73620; 73700; 80048; 80053; 81001; 82962; 83036; 85025; 85610; 85730; 93005; 93970; 96374; 96375; 97163; G0378; J1815; J2405; J2704; J3490